=== PATIENT | female | born 1995 | race Two or more races ===

== ENCOUNTER 2019-09-21 05:01 | Emergency (ER) | payer MEDICAID ==
[~2019-09-21] VITALS: Ht 147.3 cm; Wt 90.7 kg
[2019-09-21 05:10] VITALS: BP 139/95
--- NOTE | 2019-09-21 05:10 | NUR ---
ED Nurse Note: Patient walked in to ED from home c/o epigastric pain x 0200 today. Reports intermittent nausea. dEnies vomiting and diarrhea. 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 Afebrile. Not in any distress. 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
--- NOTE | 2019-09-21 05:40 | NUR ---
ED Nurse Note: IV line established. Blood and urine specimen collected and sent to lab.
[2019-09-21] MEDS ORDERED: Dicyclomine HCl 10mg/5ml oral soln ORAL ONE (05:45)
[2019-09-21] MEDS ORDERED: Mylanta II UD 30ml ORAL ONE (05:45)
[2019-09-21] MEDS ORDERED: Lidocaine 2% Visc 15ml soln ORAL ONE (05:45)
--- NOTE | 2019-09-21 05:48 | Emergency Room Report ---
History of Present Illness General Chief Complaint: Abdominal Pain Source: Patient Present Illness HPI 24-year-old female presents the ED for abdominal pain and nausea. Symptoms started around 2 AM. Pain is epigastric, burning, 8 out of 10, nonradiating. Denies chest pain or shortness of breath. Denies fevers or chills. Denies diarrhea. Denies sick contacts or recent travel. No other aggravating relieving factors. Denies any other associated symptoms COVID-19 risk:Travel to affect: No Has patient experienced bradshaw: No Allergies: Coded Allergies: No Known Allergies (Unverified , 09/21/19) Patient History Past Medical History: none Past Surgical History: none Pertinent Family History: none Social History: Denies: smoking, alcohol use, drug use Last Menstrual Period: 08/10/2019 Now: No Immunizations: UTD Reviewed Nursing Documentation: PMH: Agreed; PSxH: Agreed Nursing Documentation-PMH Past Medical History: No Stated History Review of Systems All Other Systems: negative except mentioned in HPI Physical Exam Vital Signs Date Time Temp Pulse Resp B/P (MAP) Pulse Ox O2 Delivery O2 Flow Rate FiO2 09/21/19 05:02 98.4 96 18 139/95 (110) 96 Room Air Sp02 EP Interpretation: reviewed, normal General Appearance: no apparent distress, alert, GCS 15, non-toxic Head: normocephalic, atraumatic Eyes: bilateral eye normal inspection, bilateral eye PERRL ENT: hearing grossly normal, normal pharynx, no angioedema, normal voice Neck: full range of motion, supple/symm/no masses Respiratory: chest non-tender, lungs clear, normal breath sounds, speaking full sentences Cardiovascular #1: regular rate, rhythm, no edema Cardiovascular #2: 2+ carotid (R), 2+ carotid (L), 2+ radial (R), 2+ radial (L) , 2+ dorsalis pedis (R), 2+ dorsalis pedis (L) Gastrointestinal: normal bowel sounds, soft, non-distended, no guarding, no rebound, tenderness - epigastric Rectal: deferred Genitourinary: normal inspection, no CVA tenderness Musculoskeletal: back normal, normal range of motion, gait/station normal, non- tender Neurologic: alert, motor strength/tone normal, oriented x3, sensory intact, responsive, speech normal Psychiatric: judgement/insight normal, memory normal, mood/affect normal, no suicidal/homicidal ideation Reflexes: 3+ bicep (R), 3+ bicep (L), 3+ tricep (R), 3+ tricep (L), 3+ knee (R) , 3+ knee (L) Skin: no rash Lymphatic: no adenopathy Medical Decision Making Diagnostic Impression: Primary Impression: Gastritis Qualified Codes: K29.00 - Acute gastritis without bleeding ER Course Hospital Course 24-year-old F presents to ED with epigastric pain differential diagnosis: gastritis, SBO, cholecystits Clinical course Patient placed on stretcher. 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 After initial history and physical I ordered labs, IV fluids, GI cocktail, pepcid Labs - no leukocytosis, no electrolyte abnormalities, LFTs normal, UA unremarkable Upon reassessment, patient states pain has improved. findings consistent with gastritis. Iva findings with patient. Will discharge to home. Safe for discharge and close outpatient follow-up. States she has a PMD I feel this is a highly complex case requiring extensive working including EKG/ Rhythm strip, Xray/CT/US, Blood/urine lab work, repeat exams while in ED, and administration of strong opiates/narcotics for pain control, admission to hospital or close patient follow up. Diagnosis - gastritis Stable and discharged to home with prescriptions for Zantac. Followup with PMD. Return to ED if symptoms recur or worsen Labs Test 09/21/19 05:39 09/21/19 06:06 White Blood Count 8.8 K/UL (4.8-10.8) Red Blood Count 5.24 M/UL (4.20-5.40) Hemoglobin 13.8 G/DL (12.0-16.0) Hematocrit 39.4 % (37.0-47.0) Mean Corpuscular Volume 75 FL (80-99) Mean Corpuscular Hemoglobin 26.3 PG (27.0-31.0) Mean Corpuscular Hemoglobin Concent 35.0 G/DL (32.0-36.0) Red Cell Distribution Width 11.7 % (11.6-14.8) Platelet Count 456 K/UL (150-450) Mean Platelet Volume 5.1 FL (6.5-10.1) Neutrophils (%) (Auto) 59.9 % (45.0-75.0) Lymphocytes (%) (Auto) 31.1 % (20.0-45.0) Monocytes (%) (Auto) 6.5 % (1.0-10.0) Eosinophils (%) (Auto) 1.2 % (0.0-3.0) Basophils (%) (Auto) 1.2 % (0.0-2.0) Sodium Level 136 MMOL/L (136-145) Potassium Level 4.0 MMOL/L (3.5-5.1) Chloride Level 103 MMOL/L (98-107) Carbon Dioxide Level 24 MMOL/L (21-32) Anion Gap 9 mmol/L (5-15) Blood Urea Nitrogen 10 mg/dL (7-18) Creatinine 0.7 MG/DL (0.55-1.30) Estimat Glomerular Filtration Rate > 60 mL/min (>60) Glucose Level 116 MG/DL (74-106) Calcium Level 9.3 MG/DL (8.5-10.1) Total Bilirubin 0.2 MG/DL (0.2-1.0) Aspartate Amino Transf (AST/SGOT) 16 U/L (15-37) Alanine Aminotransferase (ALT/SGPT) 29 U/L (12-78) Alkaline Phosphatase 91 U/L (46-116) Total Protein 7.3 G/DL (6.4-8.2) Albumin 3.7 G/DL (3.4-5.0) Globulin 3.6 g/dL Albumin/Globulin Ratio 1.0 (1.0-2.7) Lipase 140 U/L (73-393) Urine Color Pale yellow Urine Appearance Clear Urine pH 5 (4.5-8.0) Urine Specific [place] 1.010 (1.005-1.035) Urine Protein Negative (NEGATIVE) Urine Glucose (UA) Negative (NEGATIVE) Urine Ketones Negative (NEGATIVE) Urine Blood Negative (NEGATIVE) Urine Nitrite Negative (NEGATIVE) Urine Bilirubin Negative (NEGATIVE) Urine Urobilinogen Normal MG/DL (0.0-1.0) Urine Leukocyte Esterase 3+ (NEGATIVE) Urine RBC 0-2 /HPF (0 - 2) Urine WBC 10-15 /HPF (0 - 2) Urine Squamous Epithelial Cells Few /LPF (NONE/OCC) Urine Bacteria Few /HPF (NONE) Urine HCG, Qualitative Negative (NEGATIVE) Last Vital Signs Date Time Temp Pulse Resp B/P (MAP) Pulse Ox O2 Delivery O2 Flow Rate FiO2 09/21/19 05:10 96 18 Room Air 09/21/19 05:10 98.4 139/95 96 Status: improved Disposition: HOME, SELF-CARE Condition: Stable Scripts Ondansetron Odt* (ZOFRAN ODT*) 4 Mg Tab.rapdis 4 MG BC EVERY 6 HOURS PRN for Nausea & Vomiting, #10 TAB 0 Refills Prov: Andreas Mcmullen MD 09/21/19 Famotidine* (Pepcid 20mg tablet*) 20 Mg Tablet 20 MG ORAL DAILY, #30 TAB 0 Refills Prov: Andreas Mcmullen MD 09/21/19 Referrals: [facility],REFERRING (PCP) Andreas Mcmullen MD Sep 21, 2019 05:48
[2019-09-21 06:07] LABS: BASOPHILS % (AUTO) 1.2 % (0.0-2.0); EOSINOPHILS % (AUTO) 1.2 % (0.0-3.0); HEMATOCRIT 39.4 % (37.0-47.0); HEMOGLOBIN 13.8 G/DL (12.0-16.0); LYMPHOCYTES % (AUTO) 31.1 % (20.0-45.0); MEAN CORPUSCULAR VOLUME 75 FL (80-99); MONOCYTES % (AUTO) 6.5 % (1.0-10.0); NEUTROPHILS % (AUTO) 59.9 % (45.0-75.0); PLATELET COUNT 456 K/UL (150-450); RED BLOOD COUNT 5.24 M/UL (4.20-5.40); RED CELL DISTRIBUTION WIDTH 11.7 % (11.6-14.8); WHITE BLOOD COUNT 8.8 K/UL (4.8-10.8)
[2019-09-21 06:13] LABS: ANION GAP 9 mmol/L (5-15); BLOOD UREA NITROGEN 10 mg/dL (7-18); CALCIUM 9.3 MG/DL (8.5-10.1); CARBON DIOXIDE 24 MMOL/L (21-32); CHLORIDE 103 MMOL/L (98-107); CREATININE 0.7 MG/DL (0.55-1.30); SODIUM 136 MMOL/L (136-145)
[2019-09-21 06:18] LABS: ALANINE AMINOTRANSFERASE 29 U/L (12-78); ALBUMIN 3.7 G/DL (3.4-5.0); ALKALINE PHOSPHATASE 91 U/L (46-116); ASPARTATE AMINO TRANSFERASE 16 U/L (15-37); BILIRUBIN,TOTAL 0.2 MG/DL (0.2-1.0)
[2019-09-21 06:44] LABS: APPEARANCE,URINE CLEAR; BILIRUBIN, URINE NEGATIVE (NEGATIVE); COLOR,URINE PALE YELLOW; GLUCOSE, URINE (UA) NEGATIVE (NEGATIVE); KETONES,URINE NEGATIVE (NEGATIVE); LEUKOCYTE ESTERASE ,URINE 3+ (NEGATIVE); NITRITE,URINE NEGATIVE (NEGATIVE); PH,URINE 5 (4.5-8.0); PROTEIN,URINE NEGATIVE (NEGATIVE); UROBILINOGEN,URINE NORMAL MG/DL (0.0-1.0)
[2019-09-21] MEDS ORDERED: FAMOTIDINE20 MG ORAL (07:03)
[2019-09-21] MEDS ORDERED: ONDANSETRON ODT4 MG BC (07:03)
[2019-09-21 07:05] VITALS: BP 126/85
--- NOTE | 2019-09-21 07:05 | NUR ---
ED Nurse Note: Pt cleared by ERMD for discharge. DC instructions/prescription was given and explained to pt and verbalized understanding of teachings. All medical deviecs such as ID band and IV line removed. Pt is AAO x4, ambulatory and left with all personal belongings.
== END 2019-09-21 07:05 | disposition home or self-care (01) ==
LOC: EMR 05:33
DX: R10.9 Unspecified abdominal pain (principal); R11.0 Nausea
CPT/HCPCS: 36415; 80053; 81003; 81025; 83690; 85025; 87086; 96361; 96374; J7030; S0028; Z7502; 99284